=== PATIENT | female | born 1960 | race Caucasian/White ===

== ENCOUNTER 2024-06-02 07:51 | Inpatient (IN) | payer MEDICAID ==
[~2024-06-02] VITALS: Ht 170.2 cm; Wt 96.0 kg
[2024-06-02] VITALS (9 sets, daily range): BP systolic 110–181; BP diastolic 73–84; PULSE 85–102; RESP 18–36; TEMP 97.4–98.4; O2SAT 91–95
[2024-06-02] MEDS: MAGNESIUM SULFATE 1GM/100ML 100 ML IV ONE ×2 (08:00→09:41)
--- NOTE | 2024-06-02 08:00 | ED.PDOC ---
History of Present Illness HPI Comments 63F BIBA w/ prior Hx of Asthma which may be associated to the c/c of SOB. EMS report that the pt informed them that she had the SOB for the past 24 hrs w/ it worsening this morning. EMS state that the pt used all of her inhaler which contained albuterol during the last 24hrs w/ no help and that diaphoretic b reathing. En rout pt was given albuterol and a CPAP. Pt notes that the last time she has had symptoms was a "few years ago". PMHx of DM. Denies chills, fever, N/V/D, CP or no other associated symptoms, modifiers, recent injuries or sick contacts at this time. Time Seen by MD: 07:55 Reviewed Notes: Nurses Notes, Medications, Allergies Allergies: Coded Allergies: NO KNOWN ALLERGIES (Unverified , 06/02/24) Information Source: Patient, Emergency Med Personnel Mode of Arrival: EMS Severity: Moderate Timing: Hours Duration: Since onset, Hours Prehospital treatment: None Past Medical History PAST MEDICAL HISTORY: Asthma, DM Surgical History: Denies all surgeries [employer] SALESPERSON History: No Pertinent WHOL[employer]ALE [employer] SALESPERSON History Family History Family History: Reviewed,noncontributory to illness, Unknown Social History Smoker: Non-Smoker Alcohol: Denies ETOH Use Drugs: Denies Drug Use Lives In: Home Constitutional: denies: chills, diaphoresis, fatigue, fever, malaise, sweats, weakness, others EENTM: denies: blurred vision, double vision, ear bleeding, ear discharge, ear drainage, ear pain, ear ringing, eye pain, eye redness, hearing loss, mouth pain, mouth swelling, nasal discharge, nose bleeding, nose congestion, nose pa in, photophobia, tearing, throat pain, throat swelling, voice changes, others Respiratory: reports: SOB at rest, shortness of breath; denies: cough, hemoptysis, orthopnea, SOB with excertion, stridor, wheezing, others Cardiovascular: denies: chest pain, dizzy spells, diaphoresis, Dyspnea on exertion, edema, irregular heart beat, left arm pain, lightheadedness, palpitations, PND, syncope, others Gastrointestinal: denies: abdomen distended, abdominal pain, blood streaked bowels, constipated, diarrhea, dysphagia, difficulty swallowing, hematemesis, melena, nausea, poor appetite, poor fluid intake, rectal bleeding, rectal pain, vomiting, others Genitourinary: denies: abnormal vagina bleeding, burning, dyspareunia, dysuria, flank pain, frequency, hematuria, incontinence, pain, , vagina discharge, urgency, others Neurological: denies: dizziness, fainting, headache, left sided numbness, left sided weakness, numbness, paresthesia, pre-existing deficit, right sided numbness, right sided weakness, seizure, speech problems, tingling, tremors, weakness, others Musculoskeletal: denies: back pain, gout, joint pain, joint swelling, muscle pain, muscle stiffness, neck pain, others Integumetry: denies: bruises, change in color, change in hair/nails, dryness, laceration, lesions, lumps, rash, wounds, others Allergic/Immunocompromised: denies: Difficulty Healing, Frequent Infections, Hives, Itching, others Hematologic/Lymphatic: denies: anemia, blood clots, easy bleeding, easy bruising, swollen glands, others Endocrine: denies: excessive hunger, excessive sweating, excessive thirst, excessive urination, flushing, intolerance to cold, intolerance to heat, unexplained weight gain, unexplained weight loss, others Psychiatric: denies: anxiety, bipolar disorder, depression, hopeless, panic disorder, schizophrenia, sleepless, suicidal, others All Other Systems: Reviewed and Negative Physical Exam General Appearance: Moderate Distress, Normal HEENT: Normal ENT Inspection, Pharynx Normal, TMs Normal Neck: Full Range of Motion, Non-Tender, Normal, Normal Inspection Respiratory: Accessory Muscle Use, Chest Non-Tender, Respiratory Distress, Wheezing Cardiovascular: No Edema, No JVD, No Murmur, No Gallop, Normal Peripheral Pulses, Tachycardia Breast Exam: Deferred Gastrointestinal: No Organomegaly, Non Tender, No Pulsatile Mass, Normal Bowel Sounds, Soft Genitalia: Deferred Pelvic: Deferred Rectal: Deferred Extremities: No calf tenderness, Normal capillary refill, Normal inspection, Normal range of motion, Non-tender, No pedal edema Musculoskeletal : Apperance: Normal Neurologic: Alert, oracle hrms developer II-XII nml as Tested, No Motor Deficits, Normal Affect, Normal Mood, No Sensory Deficits Cerebellar Function: NOT DONE Reflexes: NOT DONE Skin: Dry, Normal Color, Warm Peripheral Pulses: 3+ Radial (R), 3+ Radial (L) Lymphatic: No Adenopathy Was a procedure done? Was a procedure done?: No Differential Dx Considerations may include: Pneumonitis Electrolyte imbalance X-Ray, Labs, Meds, VS Vital Signs Date Time Temp Pulse Resp B/P (MAP) Pulse Ox O2 Delivery O2 Flow Rate FiO2 06/02/24 08:15 33 99 Bi-Pap+ 30 30 06/02/24 08:10 100 181/78 06/02/24 08:05 94 181/78 Facial BiPAP Mask 30 06/02/24 08:01 95 Lab Test 06/02/24 08:08 Range/Units White Blood Count Pending Red Blood Count Pending Hemoglobin Pending Hematocrit Pending Mean Corpuscular Volume Pending Mean Corpuscular Hemoglobin Pending Mean Corpuscular Hemoglobin Concent Pending Red Cell Distribution Width Pending Platelet Count Pending Mean Platelet Volume Pending Neutrophils (%) (Auto) Pending Lymphocytes (%) (Auto) Pending Monocytes (%) (Auto) Pending Basophils (%) (Auto) Pending Neutrophils # (Auto) Pending Lymphocytes # (Auto) Pending Monocytes # (Auto) Pending Sodium Level Pending Potassium Level Pending Chloride Level Pending Carbon Dioxide Level Pending Anion Gap Pending Blood Urea Nitrogen Pending Creatinine Pending Glomerular Filtration Rate Calc Pending BUN/Creatinine Ratio Pending Serum Glucose Pending Calcium Level Pending Troponin I High Sensitivity Pending Current Medications Medications (Trade) Dose Ordered Sig/Kuldip Route Start Time Stop Time Status Last Admin Methylprednisolone Sodium Succinate (Solu Medrol) 125 mg ONCE ONCE IV 06/02/24 08:00 06/02/24 08:01 DC 06/02/24 08:09 Albuterol (Ventolin Medneb) 5 mg ONCE ONCE NEB 06/02/24 08:00 06/02/24 08:01 DC 06/02/24 08:14 Ipratropium [place] (Atrovent Medneb) 0.5 mg ONCE ONCE NEB 06/02/24 08:00 06/02/24 08:01 DC 06/02/24 08:14 Magnesium Sulfate/ Dextrose 100 ml @ 100 mls/hr ONCE ONCE IV 06/02/24 08:00 06/02/24 08:59 06/02/24 08:09 Labetalol HCl (Labetalol HCl) 10 mg ONCE ONCE IV 06/02/24 08:15 06/02/24 08:16 DC 06/02/24 08:10 Patient alert. Complaining of shortness a breath. She came in on CPAP. Was given steroid. Was given albuterol. Was given magnesium. Blood pressure elevated. Was given labetalol. EKG reviewed does show tachycardia. It has been many years since she had an attack like this. History of asthma. Explained to the patient. Continue cardiac monitoring. Time of 1ST Reevaluation: 08:25 Reevaluation 1ST: Unchanged Patient Education/Counseling: Diagnosis, Treatment, Prognosis Family Education/Counseling: No Family Present Departure 1 Departure Time of Disposition: 08:16 Impression: Primary Impression: Acute respiratory failure Qualified Codes: J96.01 - Acute respiratory failure with hypoxia Additional Impressions: Asthma exacerbation Qualified Codes: J45.901 - Unspecified asthma with (acute) exacerbation Hypertensive urgency Disposition: 09 ADMITTED INPATIENT Admit to: Med Surg Condition: Guarded Critical Care Note Critical Care Time?: Yes (90 min-critical care time only) Critical care comment: Placed on BiPAP Stability Stability form required: No Heart Score Heart Score: Heart Score Response (Comments) Value History Slightly Suspicious 0 EKG Normal 0 Age 45-64 1 Risk Factors >3 or Hx ASHD 2 Troponin Normal limit 0 Total 3 I personally scribed for MARCELLO JOSEPH MD ([email or web address]) on 06/02/24 at 08:00. Electronically submitted by Prasad Pelayo ([email or web address]). MARCELLO JOSEPH MD Jun 02, 2024 08:00
[2024-06-02] MEDS: methylPREDNISolone SOD SUCC 125 MG/2 ML VL IV ONE (08:09)
[2024-06-02] MEDS: LABETALOL HCL 20 MG/4 ML VL IV ONE (08:10)
[2024-06-02] MEDS: ALBUTEROL SULF 2.5 MG/0.5ML(0.5%) NEB SOLN NEB ONE (08:14)
[2024-06-02] MEDS: IPRATROPIUM BROM 0.5 MG/2.5ML INH SOL NEB ONE (08:14)
[2024-06-02 08:25] LABS: Basophils # (auto) 0.1 10 ^3/uL (0-0.2); Basophils % (auto) 0.9 % (0.0-2.0); Eosinophils # (auto) 0.2 10 ^3/uL (0-0.8); Eosinophils % (auto) 1.7 % (0.0-7.0); Hematocrit 42.6 % (36.0-46.0); Hemoglobin 14.4 g/dL (12.2-16.2); Lymphocytes # (auto) 1.8 10 ^3/uL (0.4-5.4); Mean Corpuscular Hemoglobin 29.1 pg (28.0-32.0); Mean Corpuscular Hgb Conc. 33.7 g/dL (32.0-36.0); Mean Corpuscular Volume 86.4 fL (80.0-100.0); Monocytes # (auto) 0.6 10 ^3/uL (0-1.3); Monocytes % (auto) 4.9 % (0.0-12.0); Neutrophils # (auto) 8.7 10 ^3/uL (1.6-8.6); Neutrophils % (auto) 76.5 % (37.0-80.0); Nucleated Red Blood Cells % 0.1 %; Platelet Count (auto) 241 10^3/uL (140-450); Red Blood Cells 4.93 10^6/uL (4.0-5.20); White Blood Cell 11.4 10^3/uL (4.4-10.8)
[2024-06-02 08:33] LABS: Potassium 3.9 mmol/L (3.5-5.1); Sodium 139 mmol/L (136-145)
[2024-06-02 08:34] LABS: Calcium 9.8 mg/dL (8.7-10.4); Carbon Dioxide 22 mmol/L (20-31)
--- NOTE | 2024-06-02 08:37 | DVH ---
CHEST RADIOGRAPH Indication: SOB Technique: Single frontal view of the chest was obtained COMPARISON: None FINDINGS: Lines and Tubes: None Lungs: Congestion Pleura: No effusion. No pneumothorax. Cardiomediastinal contours: Unremarkable Bones: Unremarkable IMPRESSION: Pulmonary vascular congestion
[2024-06-02 08:39] LABS: Anion Gap 8 (5-15); BUN/Creatinine Ratio 10.1 (10.0-20.0); Chloride 109 mmol/L (98-107)
[2024-06-02 08:40] LABS: Blood Urea Nitrogen 7 mg/dL (9-23); Glucose 174 mg/dL (74-106)
[2024-06-02] MEDS ORDERED: MORPHINE SULFATE INJ 2 MG/ml SYRG IV PRN (09:30)
[2024-06-02] MEDS ORDERED: NITROGLYCERIN 0.4 MG SL TAB SL PRN (09:30)
--- NOTE | 2024-06-02 10:02 | DVHHP2 ---
History of Present Illness Reason for Visit: Shortness of breath History of Present Illness Patient was a 63 year old female transported to the emergency room with acute respiratory failure. Patient states that she used all of her albuterol inhaler as well as Combivent prior to coming to the hospital over the past 24 hours. U rosendo arrival by EMS patient was paced on CPAP, which was transitioned to BiPAP in the emergency room. Patient states that she was traveling from [place], and is out of her medications due to this acute exacerbation. She reports a significant history of asthma for which he takes albuterol, as well as diabetes mellitus. Patient reports having history of smoking, intermittently over the past 30 years. Pulmonary: Asthma Endocrine: Diabetes Past Surgical History: Tonsillectomy Family History: None Smoke: No ALCOHOL: none Drugs: None Lives: with Family Domestic Violence: Neg Review of Systems Constitutional: No: Fever, Chills, Sweats, Weakness, Malaise, Other Eyes: No: Pain, Vision change, Conjunctivae inflammation, Eyelid inflammation, Other, Redness Respiratory: Shortness of breath, Wheezing Cardiovascular: No: Chest Pain, Palpitations, Orthopnea, Paroxysmal Noc. Dyspnea, Edema, Lt Headedness, Other Gastrointestinal: No: Nausea, Vomiting, Abdominal Pain, Diarrhea, Constipation, Melena, Hematochezia, Other Genitourinary: No Dysuria, No Frequency, No Incontinence, No Hematuria, No Retention, No Other Musculoskeletal: No: other, neck pain, shoulder pain, arm pain, back pain, hand pain, leg pain, foot pain Skin: No: Rash, Lesions, Jaundice, Bruising, Other Neurological: No: Weakness, Numbness, Incoordination, Change in speech, Confusion, Seizures, Other Allergies: Coded Allergies: NO KNOWN ALLERGIES (Unverified , 06/02/24) Medications Current Medications Medications Dose Ordered Sig/Kuldip Route Start Time Stop Time Status Last Admin Dose Admin Nitroglycerin 0.4 mg Q5MINP PRN SL 06/02/24 09:30 Morphine Sulfate 2 mg Q30M PRN IV 06/02/24 09:30 UNV Albuterol 1.25 mg Q4HR NEB 06/02/24 10:00 Ipratropium [place] 0.5 mg Q4HR NEB 06/02/24 10:00 UNV Budesonide 0.5 mg BID NEB 06/02/24 10:00 Methylprednisolone Sodium Succinate 40 mg BID IV 06/02/24 22:00 UNV Azithromycin 250 ml @ 125 mls/hr DAILY IV 06/02/24 10:00 UNV Exam Vital Signs Vital Signs Date Time Temp Pulse Resp B/P (MAP) Pulse Ox O2 Delivery O2 Flow Rate FiO2 06/02/24 08:49 76 124/58 06/02/24 08:42 97.8 33 94 30 97.8 06/02/24 08:15 Bi-Pap+ 06/02/24 08:00 2 General Appearance: Alert, Oriented X3, Cooperative, moderate distress HEENT: Atraumatic, PERRLA Respiratory: Other (Inspiratory and expiratory wheezing) Cardiovascular: Normal S1, Normal S2 Abdominal: Normal bowel sounds, Soft, No tenderness Extremities: No clubbing, No cyanosis Skin: No rashes, No breakdown Neuro: Normal gait, Normal speech, Strength at 5/5 X4 ext, Cranial nerves 3-12 NL Psych/Mental Status: Mental status NL, Mood NL Labs/Xrays Labs Test 06/02/24 09:10 06/02/24 08:08 Range/Units Blood Gas Specimen Type Arterial Blood Gas Sample Site Left radial Blood Gas Patient Temperature 37.0 Arterial Blood Date Drawn [id number] Arterial Blood pH 7.318 L 7.350-7.450 Arterial Blood Partial Pressure CO2 44.2 32.0-45.0 mmHg Arterial Blood Partial Pressure O2 79.2 L 83.0-108.0 mmHg Arterial Blood HCO3 22.2 21.0-28.0 mmol/L Arterial Blood Oxygen Saturation 95.1 94.0-98.0 % Arterial Blood Base Excess -4.0 L -2.0-3.0 mmol/L Arterial Blood Oxyhemoglobin 93.8 L 94.0-98.0 % Arterial Blood Carboxyhemoglobin 0.9 0.5-1.5 % Arterial Blood Methemoglobin 0.5 0.0-1.5 % Kristopher Test Yes Blood Gas Total Hemoglobin 14.70 12.0-16.0 g/dL Blood Gas Set Respiration Rate 12.0 Blood Gas Modality Mask - bipap FiO2 % 30.0 Blood Gas EPAP 5 Blood Gas IPAP 12 White Blood Count 11.4 H 4.4-10.8 10^3/uL Red Blood Count 4.93 4.0-5.20 10^6/uL Hemoglobin 14.4 12.2-16.2 g/dL Hematocrit 42.6 36.0-46.0 % Mean Corpuscular Volume 86.4 80.0-100.0 fL Mean Corpuscular Hemoglobin 29.1 28.0-32.0 pg Mean Corpuscular Hemoglobin Concent 33.7 32.0-36.0 g/dL Red Cell Distribution Width 14.0 11.8-14.3 % Platelet Count 241 140-450 10^3/uL Mean Platelet Volume 6.9 6.9-10.8 fL Neutrophils (%) (Auto) 76.5 37.0-80.0 % Lymphocytes (%) (Auto) 16.0 10.0-50.0 % Monocytes (%) (Auto) 4.9 0.0-12.0 % Eosinophils (%) (Auto) 1.7 0.0-7.0 % Basophils (%) (Auto) 0.9 0.0-2.0 % Neutrophils # (Auto) 8.7 H 1.6-8.6 10 ^3/uL Lymphocytes # (Auto) 1.8 0.4-5.4 10 ^3/uL Monocytes # (Auto) 0.6 0-1.3 10 ^3/uL Eosinophils # (Auto) 0.2 0-0.8 10 ^3/uL Basophils # (Auto) 0.1 0-0.2 10 ^3/uL Nucleated Red Blood Cells 0.1 % Sodium Level 139 136-145 mmol/L Potassium Level 3.9 3.5-5.1 mmol/L Chloride Level 109 H 98-107 mmol/L Carbon Dioxide Level 22 20-31 mmol/L Anion Gap 8 5-15 Blood Urea Nitrogen 7 L 9-23 mg/dL Creatinine 0.69 0.550-1.02 mg/dL Glomerular Filtration Rate Calc 97 >90 mL/min BUN/Creatinine Ratio 10.1 10.0-20.0 Serum Glucose 174 H 74-106 mg/dL Calcium Level 9.8 8.7-10.4 mg/dL Troponin I High Sensitivity 3 L </=34 ng/L Assessment/Plan Assessment/Plan Impression: -acute hypoxic respiratory failure requiring noninvasive positive pressure ventilation -history of nicotine use -acute asthma exacerbation -diabetes mellitus -pulmonary vascular congestion, rule out acute systolic heart failure Plan: -admit to telemetry unit -continue BiPAP with current settings -bronchodilators q.4 hours -add Pulmicort, Solu-Medrol -IV magnesium -check A1c -regular insulin sliding scale -antibiotic therapy with azithromycin -repeat labs in a.m. -echocardiogram Critical care time spent with patient discussing and formulating plan of care: 40 minutes. This does not include time spent performing procedures. This medical document was created using an electronic medical record system with [employer] dictation system. Although this document has been carefully reviewed, there may still be some phonetic and typographical errors. These areas are purely typographical due to imperfections of the software programs, and do not reflect any compromise in the patient's medical care. Plan discussed with: Patient, Other (RN) My Orders Orders - RANDY ARVIZU ASSURANCE ENGINEER Procedure Category Date Status Time Admit ADMIT 06/02/24 Transmitted 09:23 Nitroglycerin PHA 06/02/24 In Process Sublingual (Ntrostat 09:30 Morphine Sulfate PHA 06/02/24 In Process Injection 09:30 Stat Ekg For Chest WILBER 06/02/24 In Process Pain 09:23 Notify Md Of Changes WILBER 06/02/24 In Process From Base 09:23 Compliance Assistant For WILBER 06/02/24 In Process 24 Hours 09:23 Emergency Dysrhythmia WILBER 06/02/24 In Process Protocol 09:23 Rhythm Strips Once WILBER 06/02/24 In Process Every Shift 09:23 Oxygen By Nasal RT 06/02/24 Transmitted Cannula 09:23 Echo 2d Mode Cardiac US 06/02/24 Logged DOP 09:23 Basic Metabolic Panel LAB 06/03/24 Verified 04:00 Magnesium LAB 06/03/24 Verified 04:00 Complete Blood Count LAB 06/03/24 Verified 04:00 Consistent DIET 06/02/24 Transmitted Carb(Ccho)Diabetes Breakfast Hemoglobin A1c LAB 06/02/24 Logged 09:23 Albuterol Medneb PHA 06/02/24 In Process (Ventolin Medneb) 10:00 Ipratropium Medneb PHA 06/02/24 In Process (Atrovent Medneb) 10:00 Magnesium Sulfate PHA 06/02/24 In Process 1gm/100ml 09:30 Budesonide PHA 06/02/24 In Process (Inhalation) 10:00 Methylprednisolone PHA 06/02/24 Logged Sod Succ (Solu Medrol 22:00 Azithromycin 500mg/ PHA 06/02/24 Logged 250ml (Zithromax 50 10:00 Date of Service: Jun 02, 2024 Billing Provider: RANDY ARVIZU NP Common Visit Codes: [id number] CARE 30-74 MIN RANDY ARVIZU NP Jun 02, 2024 10:02
[2024-06-02] MEDS: BUDESONIDE (INHALATION) 0.5 MG/2 ML NEB NEB SCH (10:07)
[2024-06-02] MEDS: ALBUTEROL SULF 2.5 MG/0.5ML(0.5%) NEB SOLN NEB SCH (10:07)
[2024-06-02] MEDS: IPRATROPIUM BROM 0.5 MG/2.5ML INH SOL NEB SCH (10:07)
[2024-06-02] MEDS: AZITHROMYCIN 500MG/ 250ML 250 ML IV SCH (12:49)
--- NOTE | 2024-06-02 19:15 | ECG ---
[facility] Test Date: 2024-06-02 Test Time: 08:01:58 Pat Name: ENE WILDER Department: ED Room: 0218 Gender: F Honey Producer: ANTONIO : 1960 Requested By: MARCELLO JOSEPH Order Number: [id number] Reading MD: Venancio Ortiz Measurements Intervals Morrill Rate: 95 P: 49 RI: 202 QRS: -44 QRSD: 152 T: 44 QT: 382 QTc: 481 Interpretive Statements Sinus tachycardia Ventricular premature complex RBBB and LAFB Electronically Signed On 06-03-2024 20:53:13 PDT by Venancio Ortiz Please click the below link to view image of tracing.
[2024-06-02 19:17] LABS: Urine Bacteria FEW /hpf (None Seen); Urine Blood Negative /uL (Negative); Urine Clarity Turbid (Clear); Urine Color Colorless (Yellow); Urine Mucus FEW (None Seen); Urine Protein, UAD TRACE (Negative); Urine Specific Gravity 1.022 (1.001-1.035); Urine Squamous Epithelial Cell FEW /hpf (<5); Urine Urobilinogen Normal (Negative); Urine WBC 77 /HPF (0-5); Urine pH 5.5 (5.0-9.0)
[2024-06-02] MEDS: methylPREDNISolone SOD SUCC 40 MG/ML VL IV SCH (21:11)
[2024-06-03] VITALS (18 sets, daily range): BP systolic 114–148; BP diastolic 66–81; PULSE 88–105; RESP 16–22; TEMP 97.7–98.6; O2SAT 91–99
[2024-06-03 06:54] LABS: Anion Gap 7 (5-15); Carbon Dioxide 24 mmol/L (20-31); Chloride 106 mmol/L (98-107); Potassium 4.3 mmol/L (3.5-5.1); Sodium 137 mmol/L (136-145)
[2024-06-03 06:55] LABS: Calcium 9.9 mg/dL (8.7-10.4)
[2024-06-03 06:56] LABS: Basophils # (auto) 0 10 ^3/uL (0-0.2); Basophils % (auto) 0.2 % (0.0-2.0); Eosinophils # (auto) 0 10 ^3/uL (0-0.8); Hematocrit 39.1 % (36.0-46.0); Hemoglobin 13.4 g/dL (12.2-16.2); Lymphocytes # (auto) 1.1 10 ^3/uL (0.4-5.4); Lymphocytes % (auto) 6.8 % (10.0-50.0); Mean Corpuscular Hemoglobin 29.4 pg (28.0-32.0); Mean Corpuscular Hgb Conc. 34.1 g/dL (32.0-36.0); Mean Corpuscular Volume 86.2 fL (80.0-100.0); Monocytes # (auto) 0.5 10 ^3/uL (0-1.3); Monocytes % (auto) 2.9 % (0.0-12.0); Neutrophils % (auto) 90.1 % (37.0-80.0); Platelet Count (auto) 219 10^3/uL (140-450); Red Blood Cells 4.54 10^6/uL (4.0-5.20); Red Cell Distribution Width 13.7 % (11.8-14.3); White Blood Cell 15.5 10^3/uL (4.4-10.8)
[2024-06-03 07:00] LABS: BUN/Creatinine Ratio 16.2 (10.0-20.0); Blood Urea Nitrogen 12 mg/dL (9-23)
[2024-06-03 07:01] LABS: Magnesium 2.5 mg/dL (1.6-2.6)
[2024-06-03 07:02] LABS: Glucose 225 mg/dL (74-106)
--- NOTE | 2024-06-03 11:20 | DVHPN2 ---
Subjective Patient reports that her shortness of breath has improved. Reviewed: Care Plan, H&P, Labs, Medications Changes from previous H/P or p: No Changes General: Per HPI Eyes: No Pain, No Vision change, No Conjunctivae inflammation, No Eyelid inflammation, No Other, No Redness Cardiovascular: No Chest Pain, No Palpitations, No Orthopnea, No Paroxysmal Noc. Dyspnea, No Edema, No Lt Headedness, No Other Respiratory: Shortness of breath, Wheezing Gastrointestinal: No Nausea, No Vomiting, No Abdominal Pain, No Diarrhea, No Constipation, No Melena, No Hematochezia, No Other Genitourinary: No Dysuria, No Frequency, No Incontinence, No Hematuria, No Retention, No Other Musculoskeletal: No other, No neck pain, No shoulder pain, No arm pain, No back pain, No hand pain, No leg pain, No foot pain Skin: No Rash, No Lesions, No Jaundice, No Bruising, No Other Objective Vitals Vital Signs Date Time Temp Pulse Resp B/P (MAP) Pulse Ox O2 Delivery O2 Flow Rate FiO2 06/03/24 10:00 92 Nasal Cannula 4.0 06/03/24 10:00 36 06/03/24 09:22 97 20 06/03/24 09:00 97.9 114/79 (91) 97.9 Intake/Output Intake and Output 06/03/24 07:00 Intake Total 500 ml Balance 500 ml Intake Oral 400 ml IV Total 100 ml # Voids 1 # Bowel Movements 2 General Appearance: Alert, Oriented X3, mild distress HEENT: Atraumatic, PERRLA Lungs: Normal air movement, Other (Persistent inspiratory wheezing) Cardiovascular: Normal S1, Normal S2 Abdomen: Normal bowel sounds, Soft, No tenderness, No hepatospenomegaly Musculoskeletal: Normal sensory function, Normal motor function Neuro: Normal gait, Normal speech Psych/Mental Status: Mental status NL, Mood NL Medications Current Medications Medications Dose Ordered Sig/Kuldip Route Start Time Stop Time Status Last Admin Dose Admin Nitroglycerin 0.4 mg Q5MINP PRN SL 06/02/24 09:30 Morphine Sulfate 2 mg Q30M PRN IV 06/02/24 09:30 Albuterol 1.25 mg Q4HR NEB 06/02/24 10:00 06/03/24 09:16 1.25 MG Ipratropium [place] 0.5 mg Q4HR NEB 06/02/24 10:00 06/03/24 09:16 0.5 MG Budesonide 0.5 mg BID NEB 06/02/24 10:00 06/03/24 05:45 0.5 MG Methylprednisolone Sodium Succinate 40 mg BID IV 06/02/24 22:00 06/03/24 10:29 40 MG Azithromycin 250 ml @ 125 mls/hr DAILY IV 06/02/24 10:00 06/03/24 10:20 125 MLS/HR Laboratory Results Laboratory Tests 06/03/24 05:43 Chemistry Test 06/03/24 05:43 Calcium Level 9.9 mg/dL (8.7-10.4) Magnesium Level 2.5 mg/dL (1.6-2.6) Urinalysis Test 06/02/24 14:42 Urine Color Colorless (Yellow) Urine Clarity Turbid (Clear) H Urine pH 5.5 (5.0-9.0) Urine Specific [place] 1.022 (1.001-1.035) Urine Protein Trace (Negative) H Urine Ketones Trace (Negative) Urine Blood Negative /uL (Negative) Urine Nitrite Negative (Negative) Urine Bilirubin Negative (Negative) Urine Urobilinogen Normal mg/dL (Negative) Urine Leukocyte Esterase 3+ /uL (Negative) Urine RBC 1 /hpf (0 - 4) Urine Microscopic WBC 77 /HPF (0-5) H Urine Squamous Epithelial Cells Few /hpf (<5) Urine Bacteria Few /hpf (None Seen) H Urine Mucus Few (None Seen) Urine Glucose 4+ mg/dL (Normal) H Labs and/or images reviewed: Labs reviewed by me, Image(s) reviewed by me Assessment/Plan Assessment/Plan Impression: -acute hypoxic respiratory failure requiring noninvasive positive pressure ventilation -history of nicotine use -acute asthma exacerbation -diabetes mellitus -pulmonary vascular congestion, rule out acute systolic heart failure Plan: Events: Patient weaned off of the BiPAP. Currently on nasal cannula at 4 L/min denies any fevers or chills, sputum production. -O2 supplementation to keep saturation greater than 92% -bronchodilators q.4 hours -continue Pulmicort and Solu-Medrol -echocardiogram results pending -regular insulin sliding scale -antibiotic therapy: Continue azithromycin, add Rocephin -repeat labs and chest x-ray in a.m. -transfer to Medical/Surgical unit Total time spent with patient discussing and formulating plan of care: 35 minutes. This medical document was created using an electronic medical record system with [employer] dictation system. Although this document has been carefully reviewed, there may still be some phonetic and typographical errors. These areas are purely typographical due to imperfections of the software programs, and do not reflect any compromise in the patient's medical care. Plan discussed with: Patient, Other (RN) My Orders Orders - RANDY ARVIZU NP Procedure Category Date Status Time Hepatitis B Surface LAB 06/02/24 In Process Antigen 19:57 Hepatitis C Antibody LAB 06/02/24 In Process 19:57 * Smoking Cessation CONS 06/02/24 Transmitted Consult 20:39 Date of Service: Jun 03, 2024 Billing Provider: RANDY ARVIZU NP Common Visit Codes: [id number] INP/OBS CARE(HIGH) RANDY ARVIZU NP Jun 03, 2024 11:20
[2024-06-03] MEDS ORDERED: DEXTROSE (50%) 50ML SYRG IV PRN (11:30)
[2024-06-03] MEDS ORDERED: ACETAMINOPHEN 500 MG TAB or CAP PO PRN (11:30)
[2024-06-03] MEDS ORDERED: HYDROcodone-ACET 5/325MG TAB PO PRN (11:30)
[2024-06-03] MEDS ORDERED: MORPHINE SULFATE INJ 2 MG/ml SYRG IV PRN (11:30)
[2024-06-03] MEDS ORDERED: guaiFENesin-DM 100/10mg/5ml SYR PO PRN (11:30)
[2024-06-03] MEDS ORDERED: ONDANSETRON HCL 4 MG/2 ML VIAL IV PRN (11:30)
--- NOTE | 2024-06-03 12:37 | DVH ---
EXAM: XY CHEST XRAY 1 VIEW REASON FOR EXAM: Pna TECHNIQUE: 1 view of the chest COMPARISON: XY CHEST PORTABLE on DOS: 06/02/24 FINDINGS: LUNGS: No pleural effusion, consolidation, or pneumothorax . Question increased interstitial markings most conspicuous in the left lung base. Additional possible area of hazy opacification in the right upper lobe. MEDIASTINUM: Normal cardiac size BONES: No acute osseous abnormality . small suspected bone island at the left proximal humerus. OTHER: None IMPRESSION: 1. Question increased interstitial markings most conspicuous in the left lung base. Additional possib le area of hazy opacification in the right upper lobe.
[2024-06-03] MEDS: InsuLIN REG 1unit/0.01ml Soln (100units/ml) SC SCH (17:50)
[2024-06-03] MEDS: cefTRIAXone 1GM/50ML D5W 50 ML IV SCH (17:51)
[2024-06-03] MEDS: ACCU-CHEK COMFORT CURVE STRIP VI SCH (17:51)
[2024-06-04] VITALS (18 sets, daily range): BP systolic 130–153; BP diastolic 69–80; PULSE 71–98; RESP 16–28; TEMP 97.7–98.5; O2SAT 89–100
[2024-06-04] MEDS ORDERED: MELO15TA29 PO (06:18)
[2024-06-04] MEDS ORDERED: ZOLP10TA6 PO (06:27)
[2024-06-04] MEDS ORDERED: GLIM4TAB42 PO (06:27)
[2024-06-04] MEDS ORDERED: IPRAAER6 IN (06:27)
[2024-06-04] MEDS ORDERED: ALBU108A5 IN (06:27)
[2024-06-04] MEDS ORDERED: CHOL100040 PO (06:27)
[2024-06-04] MEDS ORDERED: ESOM40CA83 PO (06:27)
[2024-06-04] MEDS ORDERED: CLON0.5T3 PO (06:27)
[2024-06-04 12:03] LABS: Hepatitis B Surface Antigen Negative (Negative); Hepatitis C Antibody Negative (Negative)
--- NOTE | 2024-06-04 13:18 | DVHPN2 ---
Subjective Patient reports that her shortness of breath has improved. Reviewed: Care Plan, H&P, Labs, Medications Changes from previous H/P or p: No Changes General: Per HPI Eyes: No Pain, No Vision change, No Conjunctivae inflammation, No Eyelid inflammation, No Other, No Redness Cardiovascular: No Chest Pain, No Palpitations, No Orthopnea, No Paroxysmal Noc. Dyspnea, No Edema, No Lt Headedness, No Other Respiratory: Shortness of breath, Wheezing Gastrointestinal: No Nausea, No Vomiting, No Abdominal Pain, No Diarrhea, No Constipation, No Melena, No Hematochezia, No Other Genitourinary: No Dysuria, No Frequency, No Incontinence, No Hematuria, No Retention, No Other Musculoskeletal: No other, No neck pain, No shoulder pain, No arm pain, No back pain, No hand pain, No leg pain, No foot pain Skin: No Rash, No Lesions, No Jaundice, No Bruising, No Other Objective Vitals Vital Signs Date Time Temp Pulse Resp B/P (MAP) Pulse Ox O2 Delivery O2 Flow Rate FiO2 06/04/24 12:48 98.2 80 20 153/80 (104) 99 98.2 06/04/24 09:53 Nasal Cannula 4.0 06/04/24 09:53 36 Intake/Output Intake and Output 06/04/24 07:00 Intake Total 1250 ml Balance 1250 ml Intake Oral 1000 ml IV Total 250 ml # Voids 7 # Bowel Movements 1 General Appearance: Alert, Oriented X3, mild distress HEENT: Atraumatic, PERRLA Lungs: Normal air movement, Other (Persistent inspiratory wheezing) Cardiovascular: Normal S1, Normal S2 Abdomen: Normal bowel sounds, Soft, No tenderness, No hepatospenomegaly Musculoskeletal: Normal sensory function, Normal motor function Neuro: Normal gait, Normal speech Skin: Dry, Intact Psych/Mental Status: Mental status NL, Mood NL Medications Current Medications Medications Dose Ordered Sig/Kuldip Route Start Time Stop Time Status Last Admin Dose Admin Nitroglycerin 0.4 mg Q5MINP PRN SL 06/02/24 09:30 Morphine Sulfate 2 mg Q30M PRN IV 06/02/24 09:30 Albuterol 1.25 mg Q4HR NEB 06/02/24 10:00 06/04/24 09:53 1.25 MG Ipratropium [place] 0.5 mg Q4HR NEB 06/02/24 10:00 06/04/24 09:53 0.5 MG Budesonide 0.5 mg BID NEB 06/02/24 10:00 06/04/24 06:12 0.5 MG Methylprednisolone Sodium Succinate 40 mg BID IV 06/02/24 22:00 06/04/24 08:49 40 MG Azithromycin 250 ml @ 125 mls/hr DAILY IV 06/02/24 10:00 06/04/24 08:48 125 MLS/HR Morphine Sulfate 1 mg Q4HPRN PRN IV 06/03/24 11:30 Acetaminophen/ Hydrocodone Bitart 1 tab Q6HPRN PRN PO 06/03/24 11:30 Acetaminophen 500 mg Q8HP PRN PO 06/03/24 11:30 Ondansetron HCl 4 mg Q6HP PRN IV 06/03/24 11:30 Ceftriaxone Sodium 50 ml @ 100 mls/hr DAILY@09 IV 06/03/24 11:30 06/04/24 08:49 100 MLS/HR Diagnostic Test (Pha) 1 strip ACHS 06/03/24 11:30 06/04/24 12:06 1 STRIP Insulin Human Regular ACHS SC 06/03/24 11:30 06/04/24 12:10 4 UNITS Dextrose 50 ml UD PRN IV 06/03/24 11:30 Guaifenesin/ Dextromethorphan 10 ml Q4HP PRN PO 06/03/24 11:30 Clonazepam 0.5 mg DAILY PRN PO 06/04/24 13:15 UNV Patient Own Medication 4 mg DAILY PO 06/05/24 10:00 UNV Patient Own Medication 15 mg DAILY PO 06/05/24 10:00 UNV Patient Own Medication 10 mg HS PO 06/04/24 22:00 UNV Amlodipine Besylate 5 mg DAILY PO 06/04/24 13:15 UNV Laboratory Results Laboratory Tests 06/03/24 05:43 Urinalysis Test 06/02/24 14:42 Urine Color Colorless (Yellow) Urine Clarity Turbid (Clear) H Urine pH 5.5 (5.0-9.0) Urine Specific [place] 1.022 (1.001-1.035) Urine Protein Trace (Negative) H Urine Ketones Trace (Negative) Urine Blood Negative /uL (Negative) Urine Nitrite Negative (Negative) Urine Bilirubin Negative (Negative) Urine Urobilinogen Normal mg/dL (Negative) Urine Leukocyte Esterase 3+ /uL (Negative) Urine RBC 1 /hpf (0 - 4) Urine Microscopic WBC 77 /HPF (0-5) H Urine Squamous Epithelial Cells Few /hpf (<5) Urine Bacteria Few /hpf (None Seen) H Urine Mucus Few (None Seen) Urine Glucose 4+ mg/dL (Normal) H Labs and/or images reviewed: Labs reviewed by me, Image(s) reviewed by me Assessment/Plan Assessment/Plan Impression: -acute hypoxic respiratory failure requiring noninvasive positive pressure ventilation -history of nicotine use -acute asthma exacerbation -diabetes mellitus -pulmonary vascular congestion, rule out acute systolic heart failure -accelerated hypertension Plan: Events: Patient continues to be on O2 supplementation. Persistent inspiratory and expiratory wheezing bilaterally. Chest x-ray reviewed from yesterday with new infiltrates noted to right upper lobe. -CT scan of chest to rule out interstitial lung disease -O2 supplementation to keep saturation greater than 92% -bronchodilators q.4 hours -continue Pulmicort and Solu-Medrol -echocardiogram results pending -regular insulin sliding scale -antibiotic therapy: Continue azithromycin, add Rocephin -repeat labs in a.m. Total time spent with patient discussing and formulating plan of care: 35 minutes. This medical document was created using an electronic medical record system with [employer] dictation system. Although this document has been carefully reviewed, there may still be some phonetic and typographical errors. These areas are purely typographical due to imperfections of the software programs, and do not reflect any compromise in the patient's medical care. Plan discussed with: Patient, Other (RN) My Orders Orders - RANDY ARVIZU [employer] Procedure Category Date Status Time Clonazepam Tablet PHA 06/04/24 Logged (Klonopin Tablet) 13:15 (Nf) Glimepiride PHA 06/05/24 Logged 10:00 (Nf) Meloxicam PHA 06/05/24 Logged 10:00 (Nf) Zolpidem Tartrate PHA 06/04/24 Logged 22:00 Amlodipine Tablet PHA 06/04/24 Logged (Norvasc Tablet) 13:[address] 06/04/24 Transmitted 13:08 Date of Service: Jun 04, 2024 Billing Provider: RANDY ARVIZU NP Common Visit Codes: [id number] INP/OBS CARE(HIGH) RANDY ARVIZU NP Jun 04, 2024 13:18
--- NOTE | 2024-06-04 14:35 | DVH ---
Procedure: CT CHEST WITHOUT CONTRAST Study Date and Requested Time: 06/04 01:49 PM Study Pneumonia, rule out interstitial lung disease Comparison: None Dose: CTDI: 20.34 mGy DLP: 822.7 mGycm Technique: Multiplanar images obtained through the chest without contrast Findings: Mild prominence of the right thyroid lobe with 2 cm right thyroid lobe nodule. Heart size is within normal limits with trace pericardial effusion. No significant mediastinal lymphadenopathy. No pneumothorax, or pleural effusion. Right basilar linear atelectasis. Patchy ground-glass opacities involving the bilateral upper lobes and left lower lobe. Cholelithiasis without evidence of acute cholecystitis. Scarring of the partially visualized left kid nuzhat with a 3.1 cm exophytic cyst. Partially imaged [id number] left hydronephrosis. Focus of hy perdensity with streak artifact within the posterior left kidney. Moderate size hiatal hernia. The soft tissues are unremarkable. No destructive osseous lesions are noted. Chronic bony deformity o f the right upper ribs. Impression: Patchy ground-glass opacities of bilateral upper lobes and left lower lobe which may represent infect ious/inflammatory process.
[2024-06-04] MEDS: amLODIPine BESYLATE 5 MG TAB PO SCH (16:35)
[2024-06-04] MEDS ORDERED: clonazePAM 0.5 MG TAB PO PRN (21:00)
[2024-06-04] MEDS: ZOLPIDEM TARTRATE 5 MG TAB PO SCH (22:35)
[2024-06-05] VITALS (17 sets, daily range): BP systolic 124–142; BP diastolic 49–81; PULSE 76–95; RESP 16–20; TEMP 97.6–98.4; O2SAT 93–100
[2024-06-05] MEDS: GLIMEPIRIDE 2 MG TAB PO SCH (06:08)
[2024-06-05 07:18] LABS: Chloride 105 mmol/L (98-107); Potassium 3.8 mmol/L (3.5-5.1); Sodium 141 mmol/L (136-145)
[2024-06-05 07:19] LABS: Anion Gap 8 (5-15); Calcium 10.3 mg/dL (8.7-10.4); Carbon Dioxide 28 mmol/L (20-31)
[2024-06-05 07:24] LABS: BUN/Creatinine Ratio 19.2 (10.0-20.0); Blood Urea Nitrogen 14 mg/dL (9-23); Glucose 81 mg/dL (74-106)
[2024-06-05 07:51] LABS: Basophils # (auto) 0 10 ^3/uL (0-0.2); Basophils % (auto) 0.4 % (0.0-2.0); Eosinophils # (auto) 0.1 10 ^3/uL (0-0.8); Eosinophils % (auto) 0.6 % (0.0-7.0); Hematocrit 40.1 % (36.0-46.0); Hemoglobin 13.4 g/dL (12.2-16.2); Lymphocytes # (auto) 3.4 10 ^3/uL (0.4-5.4); Lymphocytes % (auto) 32.2 % (10.0-50.0); Mean Corpuscular Hgb Conc. 33.5 g/dL (32.0-36.0); Mean Corpuscular Volume 86.6 fL (80.0-100.0); Monocytes # (auto) 0.8 10 ^3/uL (0-1.3); Monocytes % (auto) 7.2 % (0.0-12.0); Neutrophils # (auto) 6.4 10 ^3/uL (1.6-8.6); Neutrophils % (auto) 59.6 % (37.0-80.0); Nucleated Red Blood Cells % 0.1 %; Platelet Count (auto) 245 10^3/uL (140-450); Red Blood Cells 4.63 10^6/uL (4.0-5.20); Red Cell Distribution Width 13.7 % (11.8-14.3); White Blood Cell 10.7 10^3/uL (4.4-10.8)
--- NOTE | 2024-06-05 11:30 | DVHPN2 ---
Subjective Patient reports that her shortness of breath has improved. Reviewed: Care Plan, H&P, Labs, Medications Changes from previous H/P or p: No Changes General: Per HPI Eyes: No Pain, No Vision change, No Conjunctivae inflammation, No Eyelid inflammation, No Other, No Redness Cardiovascular: No Chest Pain, No Palpitations, No Orthopnea, No Paroxysmal Noc. Dyspnea, No Edema, No Lt Headedness, No Other Respiratory: Shortness of breath, Wheezing Gastrointestinal: No Nausea, No Vomiting, No Abdominal Pain, No Diarrhea, No Constipation, No Melena, No Hematochezia, No Other Genitourinary: No Dysuria, No Frequency, No Incontinence, No Hematuria, No Retention, No Other Musculoskeletal: No other, No neck pain, No shoulder pain, No arm pain, No back pain, No hand pain, No leg pain, No foot pain Skin: No Rash, No Lesions, No Jaundice, No Bruising, No Other Objective Vitals Vital Signs Date Time Temp Pulse Resp B/P (MAP) Pulse Ox O2 Delivery O2 Flow Rate FiO2 06/05/24 10:39 92 16 98 06/05/24 10:31 Nasal Cannula* 3 32 06/05/24 09:33 128/65 06/05/24 09:07 97.6 97.6 Intake/Output Intake and Output 06/05/24 07:00 Intake Total 1980 ml Balance 1980 ml Intake Oral 1680 ml IV Total 300 ml # Voids 5 # Bowel Movements 1 General Appearance: Alert, Oriented X3, Cooperative, mild distress HEENT: Atraumatic, PERRLA Lungs: Normal air movement, Other (Persistent inspiratory wheezing) Cardiovascular: Normal S1, Normal S2 Abdomen: Normal bowel sounds, Soft, No tenderness, No hepatospenomegaly Musculoskeletal: Normal sensory function, Normal motor function Neuro: Normal gait, Normal speech Skin: Dry, Intact Psych/Mental Status: Mental status NL, Mood NL Medications Current Medications Medications Dose Ordered Sig/Kuldip Route Start Time Stop Time Status Last Admin Dose Admin Nitroglycerin 0.4 mg Q5MINP PRN SL 06/02/24 09:30 Morphine Sulfate 2 mg Q30M PRN IV 06/02/24 09:30 Albuterol 1.25 mg Q4HR NEB 06/02/24 10:00 06/05/24 10:31 1.25 MG Ipratropium [place] 0.5 mg Q4HR NEB 06/02/24 10:00 06/05/24 10:31 0.5 MG Budesonide 0.5 mg BID NEB 06/02/24 10:00 06/05/24 07:37 0.5 MG Methylprednisolone Sodium Succinate 40 mg BID IV 06/02/24 22:00 06/04/24 08:49 40 MG Azithromycin 250 ml @ 125 mls/hr DAILY IV 06/02/24 10:00 06/05/24 09:30 125 MLS/HR Morphine Sulfate 1 mg Q4HPRN PRN IV 06/03/24 11:30 Acetaminophen/ Hydrocodone Bitart 1 tab Q6HPRN PRN PO 06/03/24 11:30 Acetaminophen 500 mg Q8HP PRN PO 06/03/24 11:30 Ondansetron HCl 4 mg Q6HP PRN IV 06/03/24 11:30 Ceftriaxone Sodium 50 ml @ 100 mls/hr DAILY@09 IV 06/03/24 11:30 06/05/24 09:29 100 MLS/HR Diagnostic Test (Pha) 1 strip ACHS 06/03/24 11:30 06/05/24 06:08 1 STRIP Insulin Human Regular ACHS SC 06/03/24 11:30 06/04/24 22:37 6 UNITS Dextrose 50 ml UD PRN IV 06/03/24 11:30 Guaifenesin/ Dextromethorphan 10 ml Q4HP PRN PO 06/03/24 11:30 Clonazepam 0.5 mg DAILY PRN PO 06/04/24 21:00 Glimepiride 4 mg DAILY@0700 PO 06/05/24 07:00 06/05/24 06:08 4 MG Patient Own Medication 15 mg DAILY PO 06/05/24 10:00 Zolpidem Tartrate 10 mg HS PO 06/04/24 22:00 06/04/24 22:35 10 MG Amlodipine Besylate 5 mg DAILY PO 06/04/24 13:15 06/05/24 09:33 5 MG Laboratory Results Laboratory Tests 06/05/24 05:51 Chemistry Test 06/05/24 05:51 Calcium Level 10.3 mg/dL (8.7-10.4) Urinalysis Test 06/02/24 14:42 Urine Color Colorless (Yellow) Urine Clarity Turbid (Clear) H Urine pH 5.5 (5.0-9.0) Urine Specific [place] 1.022 (1.001-1.035) Urine Protein Trace (Negative) H Urine Ketones Trace (Negative) Urine Blood Negative /uL (Negative) Urine Nitrite Negative (Negative) Urine Bilirubin Negative (Negative) Urine Urobilinogen Normal mg/dL (Negative) Urine Leukocyte Esterase 3+ /uL (Negative) Urine RBC 1 /hpf (0 - 4) Urine Microscopic WBC 77 /HPF (0-5) H Urine Squamous Epithelial Cells Few /hpf (<5) Urine Bacteria Few /hpf (None Seen) H Urine Mucus Few (None Seen) Urine Glucose 4+ mg/dL (Normal) H Labs and/or images reviewed: Labs reviewed by me, Image(s) reviewed by me Assessment/Plan Assessment/Plan Impression: -acute hypoxic respiratory failure requiring noninvasive positive pressure ventilation -history of nicotine use -acute asthma exacerbation -diabetes mellitus -pulmonary vascular congestion, rule out acute systolic heart failure -accelerated hypertension Plan: Events: CT scan shows multifocal pneumonia. Currently on 3 L nasal cannula. -hospital out of Solu-Medrol. Switch to oral prednisone -O2 supplementation to keep saturation greater than 92% -bronchodilators q.4 hours -continue Pulmicort, prednisone -echocardiogram results: Results pending -regular insulin sliding scale -antibiotic therapy: Continue azithromycin, add Rocephin Total time spent with patient discussing and formulating plan of care: 35 minutes. This medical document was created using an electronic medical record system with [employer] dictation system. Although this document has been carefully reviewed, there may still be some phonetic and typographical errors. These areas are purely typographical due to imperfections of the software programs, and do not reflect any compromise in the patient's medical care. Plan discussed with: Patient, Other (RN) My Orders Orders - RANDY ARVIZU [employer] ENGINEER Procedure Category Date Status Time Clonazepam Tablet PHA 06/04/24 In Process (Klonopin Tablet) 21:00 Glimepiride Tablet PHA 06/05/24 In Process (Amaryl Tablet) 07:00 (Nf) Meloxicam PHA 06/05/24 In Process 10:00 Zolpidem Tartrate PHA 06/04/24 In Process (Ambien) 22:00 Amlodipine Tablet PHA 06/04/24 In Process (Norvasc Tablet) 13:[address] 06/04/24 Resulted 13:08 Date of Service: Jun 05, 2024 Billing Provider: RANDY ARVIZU NP Common Visit Codes: [id number] INP/OBS CARE(HIGH) RANDY ARVIZU NP Jun 05, 2024 11:30
[2024-06-05] MEDS: predniSONE 20 MG TAB PO SCH (11:55)
[2024-06-06] VITALS (20 sets, daily range): BP systolic 122–138; BP diastolic 51–75; PULSE 75–96; RESP 16–79; TEMP 97.3–98.1; O2SAT 91–99
--- NOTE | 2024-06-06 14:51 | DVHPN2 ---
Subjective Patient reports that her shortness of breath has improved. Reviewed: Care Plan, H&P, Labs, Medications Changes from previous H/P or p: No Changes General: Per HPI Eyes: No Pain, No Vision change, No Conjunctivae inflammation, No Eyelid inflammation, No Other, No Redness Cardiovascular: No Chest Pain, No Palpitations, No Orthopnea, No Paroxysmal Noc. Dyspnea, No Edema, No Lt Headedness, No Other Respiratory: Shortness of breath, Wheezing Gastrointestinal: No Nausea, No Vomiting, No Abdominal Pain, No Diarrhea, No Constipation, No Melena, No Hematochezia, No Other Genitourinary: No Dysuria, No Frequency, No Incontinence, No Hematuria, No Retention, No Other Musculoskeletal: No other, No neck pain, No shoulder pain, No arm pain, No back pain, No hand pain, No leg pain, No foot pain Skin: No Rash, No Lesions, No Jaundice, No Bruising, No Other Objective Vitals Vital Signs Date Time Temp Pulse Resp B/P (MAP) Pulse Ox O2 Delivery O2 Flow Rate FiO2 06/06/24 13:50 89 16 98 06/06/24 13:43 Nasal Cannula* 1 24 06/06/24 13:00 97.5 137/75 (95) 97.5 Intake/Output Intake and Output 06/06/24 07:00 Intake Total 750 ml Balance 750 ml Intake Oral 450 ml IV Total 300 ml # Voids 4 # Bowel Movements 1 General Appearance: Alert, Oriented X3, Cooperative, mild distress HEENT: Atraumatic, PERRLA Lungs: Normal air movement, Other (Persistent inspiratory wheezing) Cardiovascular: Normal S1, Normal S2 Abdomen: Normal bowel sounds, Soft, No tenderness, No hepatospenomegaly Musculoskeletal: Normal sensory function, Normal motor function Neuro: Normal gait, Normal speech Skin: Dry, Intact Psych/Mental Status: Mental status NL, Mood NL Medications Current Medications Medications Dose Ordered Sig/Kuldip Route Start Time Stop Time Status Last Admin Dose Admin Nitroglycerin 0.4 mg Q5MINP PRN SL 06/02/24 09:30 Morphine Sulfate 2 mg Q30M PRN IV 06/02/24 09:30 Albuterol 1.25 mg Q4HR NEB 06/02/24 10:00 06/06/24 13:43 1.25 MG Ipratropium [place] 0.5 mg Q4HR NEB 06/02/24 10:00 06/06/24 13:43 0.5 MG Budesonide 0.5 mg BID NEB 06/02/24 10:00 06/06/24 09:44 0.5 MG Azithromycin 250 ml @ 125 mls/hr DAILY IV 06/02/24 10:00 06/06/24 09:51 125 MLS/HR Morphine Sulfate 1 mg Q4HPRN PRN IV 06/03/24 11:30 Acetaminophen/ Hydrocodone Bitart 1 tab Q6HPRN PRN PO 06/03/24 11:30 Acetaminophen 500 mg Q8HP PRN PO 06/03/24 11:30 Ondansetron HCl 4 mg Q6HP PRN IV 06/03/24 11:30 Ceftriaxone Sodium 50 ml @ 100 mls/hr DAILY@09 IV 06/03/24 11:30 06/06/24 09:45 100 MLS/HR Diagnostic Test (Pha) 1 strip ACHS 06/03/24 11:30 06/06/24 13:00 1 STRIP Insulin Human Regular ACHS SC 06/03/24 11:30 06/06/24 13:00 6 UNITS Dextrose 50 ml UD PRN IV 06/03/24 11:30 Guaifenesin/ Dextromethorphan 10 ml Q4HP PRN PO 06/03/24 11:30 Clonazepam 0.5 mg DAILY PRN PO 06/04/24 21:00 Glimepiride 4 mg DAILY@0700 PO 06/05/24 07:00 06/06/24 06:11 4 MG Patient Own Medication 15 mg DAILY PO 06/05/24 10:00 Zolpidem Tartrate 10 mg HS PO 06/04/24 22:00 06/05/24 22:02 10 MG Amlodipine Besylate 5 mg DAILY PO 06/04/24 13:15 06/06/24 09:50 5 MG Prednisone 20 mg BID PO 06/05/24 11:30 06/06/24 09:45 20 MG Laboratory Results Laboratory Tests 06/05/24 05:51 Urinalysis Test 06/02/24 14:42 Urine Color Colorless (Yellow) Urine Clarity Turbid (Clear) H Urine pH 5.5 (5.0-9.0) Urine Specific [place] 1.022 (1.001-1.035) Urine Protein Trace (Negative) H Urine Ketones Trace (Negative) Urine Blood Negative /uL (Negative) Urine Nitrite Negative (Negative) Urine Bilirubin Negative (Negative) Urine Urobilinogen Normal mg/dL (Negative) Urine Leukocyte Esterase 3+ /uL (Negative) Urine RBC 1 /hpf (0 - 4) Urine Microscopic WBC 77 /HPF (0-5) H Urine Squamous Epithelial Cells Few /hpf (<5) Urine Bacteria Few /hpf (None Seen) H Urine Mucus Few (None Seen) Urine Glucose 4+ mg/dL (Normal) H Labs and/or images reviewed: Labs reviewed by me, Image(s) reviewed by me Assessment/Plan Assessment/Plan Impression: -acute hypoxic respiratory failure requiring noninvasive positive pressure ventilation -history of nicotine use -acute asthma exacerbation -diabetes mellitus -pulmonary vascular congestion, rule out acute systolic heart failure -accelerated hypertension Plan: Events: CT scan shows multifocal pneumonia. Currently on 1 L nasal cannula. Reassess for DC tomorrow -hospital out of Solu-Medrol. Switch to oral prednisone -O2 supplementation to keep saturation greater than 92% -bronchodilators q.4 hours -continue Pulmicort, prednisone -echocardiogram results: Results pending -regular insulin sliding scale -antibiotic therapy: Continue azithromycin, Rocephin Total time spent with patient discussing and formulating plan of care: 35 minutes. This medical document was created using an electronic medical record system with [employer] dictation system. Although this document has been carefully reviewed, there may still be some phonetic and typographical errors. These areas are purely typographical due to imperfections of the software programs, and do not reflect any compromise in the patient's medical care. Plan discussed with: Patient, Other (Rn) Date of Service: Jun 06, 2024 Billing Provider: RANDY ARVIZU NP Common Visit Codes: [id number] INP/OBS CARE(HIGH) RANDY ARVIZU NP Jun 06, 2024 14:51
--- NOTE | 2024-06-06 16:32 | DVHSR ---
APPROVED REPORT EXAM: Two-dimensional and M-mode echocardiogram with Doppler and color Doppler. Blood Pressure: 124/58 mmHg INDICATION Pulmonary vascular congestion RISK FACTORS Height: 5'7", Weight: 160 DIMENSIONS LVDd4.5 (3.8-5.7cm)LA (2D)4.2 (1.9-4.0cm)Aortic Root3.3 (2.0-3.7cm) LVDs3.0 (2.5-4.0cm)LA (MM) (1.9-4.0cm)Aortic Cusp Exc1.6 (1.5-2.0cm) EF (%) 62.0 (55-70%)Rt. Atrium4.4 (1.9-4.0cm)Asc. Aorta cm IVSd0.9 (0.7-1.1cm)RV (D) (1.8-2.4cm) PWd0.8 (0.7-1.1cm) Mitral Valve MitralMitral Stenosis E wave0.98m/sMV Mean GR.mmHg A wave1.41m/sMV Peak GR.mmHg E/A ratio0.72D MVAcm2 DECEL [id number] 1/2 [place] Aortic Valve Aortic ValveAortic Stenosis V11.22m/Juana Mean GR.7mmHg V21.81m/Juana Peak GR.13mmHg LVOT Diameter2.1 (1.8-2.4cm)Doppler AVA2.33cm2 Pulmonic Valve V21.20m/s Tricuspid Valve TR Velocity2.53m/s [id number] Other Information Technically limited study due to body habitus. Conclusion lvef 70% mild lvh normal rv function but enlarged no severe valve abnormalites noted asked to read echo today 06/06/24 and read it immediately pericardial fat pad noted , vs small effusion adjacent to RV, no HD compromise
[2024-06-07] VITALS (13 sets, daily range): BP systolic 134–138; BP diastolic 75–79; PULSE 76–94; RESP 18–20; TEMP 36.9; O2SAT 92–98
[2024-06-07] MEDS ORDERED: ALBU108A5 IN (10:51)
[2024-06-07] MEDS ORDERED: CEFD300C2 PO (10:51)
[2024-06-07] MEDS ORDERED: BUDE1AER5 IN (10:51)
[2024-06-07] MEDS ORDERED: PRED20TA2 PO (10:51)
--- NOTE | 2024-06-07 10:54 | DVHDS2 ---
Discharge Summary Date of Admission Jun 02, 2024 at 09:23 Date of Discharge: Jun 07, 2024 Labs/Diagnostic Data: Laboratory Results Test 06/07/24 06:01 06/05/24 05:51 06/03/24 05:43 06/02/24 14:42 POC Glucose 242 mg/dl (70-106) White Blood Count 10.7 10^3/uL (4.4-10.8) Red Blood Count 4.63 10^6/uL (4.0-5.20) Hemoglobin 13.4 g/dL (12.2-16.2) Hematocrit 40.1 % (36.0-46.0) Mean Corpuscular Volume 86.6 fL (80.0-100.0) Mean Corpuscular Hemoglobin 29.0 pg (28.0-32.0) Mean Corpuscular Hemoglobin Concent 33.5 g/dL (32.0-36.0) Red Cell Distribution Width 13.7 % (11.8-14.3) Platelet Count 245 10^3/uL (140-450) Mean Platelet Volume 7.4 fL (6.9-10.8) Neutrophils (%) (Auto) 59.6 % (37.0-80.0) Lymphocytes (%) (Auto) 32.2 % (10.0-50.0) Monocytes (%) (Auto) 7.2 % (0.0-12.0) Eosinophils (%) (Auto) 0.6 % (0.0-7.0) Basophils (%) (Auto) 0.4 % (0.0-2.0) Neutrophils # (Auto) 6.4 10 ^3/uL (1.6-8.6) Lymphocytes # (Auto) 3.4 10 ^3/uL (0.4-5.4) Monocytes # (Auto) 0.8 10 ^3/uL (0-1.3) Eosinophils # (Auto) 0.1 10 ^3/uL (0-0.8) Basophils # (Auto) 0 10 ^3/uL (0-0.2) Nucleated Red Blood Cells 0.1 % Sodium Level 141 mmol/L (136-145) Potassium Level 3.8 mmol/L (3.5-5.1) Chloride Level 105 mmol/L (98-107) Carbon Dioxide Level 28 mmol/L (20-31) Anion Gap 8 (5-15) Blood Urea Nitrogen 14 mg/dL (9-23) Creatinine 0.73 mg/dL (0.550-1.02) Glomerular Filtration Rate Calc 92 mL/min (>90) BUN/Creatinine Ratio 19.2 (10.0-20.0) Serum Glucose 81 mg/dL (74-106) Calcium Level 10.3 mg/dL (8.7-10.4) Magnesium Level 2.5 mg/dL (1.6-2.6) Urine Color Colorless (Yellow) Urine Clarity Turbid (Clear) Urine pH 5.5 (5.0-9.0) Urine Specific [place] 1.022 (1.001-1.035) Urine Protein Trace (Negative) Urine Ketones Trace (Negative) Urine Blood Negative /uL (Negative) Urine Nitrite Negative (Negative) Urine Bilirubin Negative (Negative) Urine Urobilinogen Normal mg/dL (Negative) Urine Leukocyte Esterase 3+ /uL (Negative) Urine RBC 1 /hpf (0 - 4) Urine Microscopic WBC 77 /HPF (0-5) Urine Squamous Epithelial Cells Few /hpf (<5) Urine Bacteria Few /hpf (None Seen) Urine Mucus Few (None Seen) Urine Glucose 4+ mg/dL (Normal) Test 06/02/24 09:10 06/02/24 08:08 06/02/24 08:03 Blood Gas Specimen Type Arterial Blood Gas Sample Site Left radial Blood Gas Patient Temperature 37.0 Arterial Blood Date Drawn [id number] Arterial Blood pH 7.318 (7.350-7.450) Arterial Blood Partial Pressure CO2 44.2 mmHg (32.0-45.0) Arterial Blood Partial Pressure O2 79.2 mmHg (83.0-108.0) Arterial Blood HCO3 22.2 mmol/L (21.0-28.0) Arterial Blood Oxygen Saturation 95.1 % (94.0-98.0) Arterial Blood Base Excess -4.0 mmol/L (-2.0-3.0) Arterial Blood Oxyhemoglobin 93.8 % (94.0-98.0) Arterial Blood Carboxyhemoglobin 0.9 % (0.5-1.5) Arterial Blood Methemoglobin 0.5 % (0.0-1.5) Kristopher Test Yes Blood Gas Total Hemoglobin 14.70 g/dL (12.0-16.0) Blood Gas Set Respiration Rate 12.0 Blood Gas Modality Mask - bipap FiO2 % 30.0 Blood Gas EPAP 5 Blood Gas IPAP 12 Hemoglobin A1c 6.9 % A1C (<5.7) Troponin I High Sensitivity 3 ng/L (</=34) Hepatitis B Surface Antigen Negative (Negative) Hepatitis C Antibody Negative (Negative) Other Laboratory Tests 06/05/24 05:51 Brief Hx & Hospital Course: History of Present Illness Patient was a 63 year old female transported to the emergency room with acute respiratory failure. Patient states that she used all of her albuterol inhaler as well as Combivent prior to coming to the hospital over the past 24 hours. Upon arrival by EMS patient was paced on CPAP, which was transitioned to BiPAP in the emergency room. Patient states that she was traveling from [place], and is out of her medications due to this acute exacerbation. She reports a significant history of asthma for which he takes albuterol, as well as diabetes mellitus. Patient reports having history of smoking, intermittently over the past 30 years. Course of hospitalization: Patient was treated with empiric antibiotic therapy, O2 supplementation, Solu- Medrol which was transitioned to prednisone, as well as bronchodilators. Patient was weaned off of BiPAP with the patient having improvement with the respiratory status. Currently she was on room air. Patient was have residual wheezing, but marked improvement without any noted desaturation on room air. Patient will be discharged home with a prescription of cefdinir 300 mg p.o. b.i.d., prednisone 20 mg p.o. daily x7 days, as well as Symbicort one puff b.i.d. for the next 30 days. Patient also states that her rescue inhaler is empty, for which she will be refilled. Patient was instructed to follow up with the PCP back in [place] after she flies back at the next earliest appointment. All questions answered. Physical examination General: Alert and Oriented x3. No acute distress. Well-nourished. Eyes: EOMI. Anicteric. HENT: Moist mucous membranes. Lungs: Expiratory wheezing. No accessory muscle use. Cardiovascular: Regular rate and rhythm. No murmur. No JVD. Abdomen: Soft, non-tender and non-distended. No palpable masses. Extremities: No edema. Non-tender. Skin: No rashes or lesions. Warm. Neurologic: No focal neurological deficits. CN II-XII grossly intact, but not individually tested. Psychiatric: Cooperative. Appropriate mood and affect. Total time spent with patient discussing and formulating plan of care: 35 minutes. This medical document was created using an electronic medical record system with [employer] system. Although this document has been carefully reviewed, there may still be some phonetic and typographical errors. These areas are purely typographical due to imperfections of the software programs, and do not reflect any compromise in the patient's medical care. Condition at Discharge: Guarded Final Diagnosis/Problems List Acute hypoxic respiratory failure Secondary diagnosis: Asthma exacerbation Nicotine dependence Obesity Community-acquired pneumonia, probable Gram-positive/Gram-negative etiology Diabetes mellitus Discharge Disposition: Home Discharge Instruct/Medications Diet: Consistent carbohydrate Activity: No Restrictions, As Tolerated Medications: Cefdinir 300 mg p.o. b.i.d. x7 days Albuterol 90 mcg rescue inhaler q.4 hours as needed for has been exacerbation Prednisone 20 mg p.o. daily x7 days Symbicort one puff b.i.d. 36 Discharge Statement: "Patient was advised to return to the ER or call 911 if any headaches, dizziness, shortness of breath, chest pain, abdominal pain, bleeding, fevers, or worsening of medical condition. Patient was counseled about treatment plan, medications, possible side effects, patientverbalized understanding. All questions were answered to the best of my ability. This discharge took greater then 30 minutes in planning, reviewing documentation, counseling the patient, and discussing with other team members." ASSESSMENT ASSESSMENT Assessment Acute hypoxic respiratory failure Date of Service: Jun 07, 2024 Billing Provider: RANDY ARVIZU NP Common Visit Codes: 44900-OHQ/OBS DISCH DAY >30min RANDY ARVIZU NP Jun 07, 2024 10:54
== END 2024-06-07 17:00 | disposition home or self-care (01) | DRG 133 ==
LOC: ER 07:51 → EDBD 07:51 → OVERFLOW 09:23 → TELE-CENTR 23:45 → CENTRAL 06-03 14:14
PROVIDERS: ADMIT Nurse Practitioner Acute Care; ATTEND Nurse Practitioner Acute Care
PROC: 5A09357 Assistance with Respiratory Ventilation, Less than 24 Consecutive Hours, Continuous Positive Airway Pressure (ICD-10-PCS; principal; 2024-06-02)
DX: J96.01 Acute respiratory failure with hypoxia (principal); J15.69 Pneumonia due to other Gram-negative bacteria; J15.9 Unspecified bacterial pneumonia; J45.901 Unspecified asthma with (acute) exacerbation; E11.9 Type 2 diabetes mellitus without complications; I10 Essential (primary) hypertension; I16.0 Hypertensive urgency; E66.9 Obesity, unspecified; F17.200 Nicotine dependence, unspecified, uncomplicated
CPT/HCPCS: 36415; 36600; 71045; 71250; 80048; 81001; 82805; 82962; 83036; 83735; 84484; 85025; 86803; 87340; 93005; 93306; 94640; 94660; 96365; 96375; 99291; 99292; G0378; J1815